=== PATIENT | female | born 1940 | race African-American/Black ===

== ENCOUNTER 2018-07-02 12:11 | Inpatient (IN) | payer MEDICARE, MEDICAID ==
[~2018-07-02] VITALS: Ht 167.6 cm; Wt 71.2 kg
[~2018-07-02 12:11] MED LIST: ATOR20TA65 PO; COR6 PO; ENAL20TA PO; FURO-151 PO; MAGN400T27 PO; eliquis PO
[2018-07-02] MEDS ORDERED: SODIUM CHLORIDE 0.9% 1,000 ML IV ONE (12:36)
[2018-07-02 15:48] LABS: BASOPHILS % 0.4 % (0.0-2.0); EOSINOPHILS % 0.6 % (0.0-5.0); HEMATOCRIT. 34.9 % (36.0-48.0); HEMOGLOBIN. 11.3 g/dL (12.0-16.0); LYMPHOCYTES % 18.7 % (20.0-50.0); MEAN CORPUSCULAR HEMOGLOBIN 28.6 pg (28.0-32.0); MEAN CORPUSCULAR VOLUME 88.1 fL (81.0-99.0); MEAN PLATELET VOLUME 7.9 fl (7.4-10.4); MONOCYTES % 13.6 % (2.0-8.0); NEUTROPHILS % 66.7 % (40.0-76.0); PLATELET 294 x1000/uL (130-400); RED BLOOD CELL COUNT 3.96 mill/uL (4.2-5.4); RED CELL DISTRIBUTION WIDTH 16.6 % (11.6-14.6)
[2018-07-02 15:50] LABS: CHLORIDE 101 mEq/L (98-107)
[2018-07-02 15:52] LABS: D-DIMER 1.79 mg/L FEU (<0.50); INR 1.1; PARTIAL THROMBOPLASTIN TIME 30.2 sec (23.4-31.0); PROTHROMBIN TIME 11.5 sec (9.1-11.1)
[2018-07-02 16:05] LABS: CREATINE KINASE 50 IU/L (26-192)
[2018-07-02] MEDS ORDERED: LORAZEPAM 2MG/ML CPJ IV ONE (16:15)
[2018-07-02] MEDS ORDERED: LORAZEPAM 2MG/ML CPJ ONE (16:20)
[2018-07-02] MEDS ORDERED: CLONIDINE 0.1MG TABLET PO PRN (17:15)
[2018-07-02] MEDS ORDERED: IPRATROPIUM/ALBUTEROL 0.5-3(2.5)MG/3ML NEB INH PRN (17:15)
[2018-07-02] MEDS ORDERED: DOCUSATE SODIUM 100MG CAPSULE PO PRN (17:15)
[2018-07-02] MEDS ORDERED: NA PHOS,M-B/NA PHOS,DI-BA ENEMA 118ML PR PRN (17:15)
[2018-07-02] MEDS ORDERED: TRAMADOL 50MG TABLET PO PRN (17:15)
[2018-07-02] MEDS ORDERED: NITROGLYCERIN 0.4MG TABLET SL SL PRN (17:15)
[2018-07-02] MEDS ORDERED: ACETAMINOPHEN 325MG TABLET PO PRN (17:15)
[2018-07-02] MEDS ORDERED: ONDANSETRON HCL 4MG/2ML VIAL IV PRN (17:15)
[2018-07-02] MEDS ORDERED: GUAIFENESIN 200MG/10ML SUGAR FREE UDC PO PRN (17:15)
[2018-07-02] MEDS ORDERED: MAGNESIUM/ALUMINUM HYDROXIDE/SIMETHICONE 30ML UDC PO PRN (17:15)
[2018-07-02] MEDS ORDERED: ZOLPIDEM TARTRATE 5MG TABLET PO PRN (21:00)
[2018-07-02 22:10] LABS: CREATINE KINASE MB FRACTION 2.4 ng/mL (0.5-3.6)
[2018-07-02 22:30] VITALS: BP 127/84
[2018-07-02] MEDS ORDERED: ONDANSETRON 4MG ODT PO PRN (23:30)
[2018-07-03] VITALS: BP 127/84
[2018-07-03] MEDS ORDERED: LEVOFLOXACIN 500MG PREMIX 100 ML IV SCH ×2
[2018-07-03] MEDS: APIXABAN 2.5 MG TABLET PO SCH ×3 (00:06→20:38)
[2018-07-03] MEDS: SODIUM CHLORIDE 0.9% 1,000 ML IV SCH (00:06)
[2018-07-03] MEDS ORDERED: ATOR10TA69 PO (00:32)
[2018-07-03] MEDS ORDERED: CARV12.545 PO (00:34)
[2018-07-03] MEDS ORDERED: SPIR25TA6 PO (00:37)
[2018-07-03] MEDS ORDERED: HYDR-4135 PO (00:37)
[2018-07-03] MEDS ORDERED: FAMO20TA8 PO (00:38)
[2018-07-03] MEDS ORDERED: AMLO2.5T2 PO (00:39)
[2018-07-03] MEDS ORDERED: CEFTRIAXONE 1 G PREMIX 50 ML IV NR (01:00)
[2018-07-03 04:00] VITALS: BP 115/73
[2018-07-03] MEDS: HALOPERIDOL LACTATE 5MG/ML VIAL IM PRN ×2 (04:09→22:45)
[2018-07-03] MEDS: CARVEDILOL 3.125 MG TABLET PO SCH ×2 (06:33→20:05)
[2018-07-03 08:03] LABS: CLARITY URINE CLEAR (CLEAR); COLOR URINE DARK YELLOW (YELLOW); KETONES URINE TRACE (NEGATIVE); LEUKOCYTE ESTERASE URINE NEGATIVE (NEGATIVE); NITRITE URINE NEGATIVE (NEGATIVE); OCCULT BLOOD URINE NEGATIVE (NEGATIVE); PROTEIN URINE NEGATIVE (NEGATIVE); SPECIFIC GRAVITY URINE 1.015 (1.005-1.030)
[2018-07-03 08:16] VITALS: BP 116/74
[2018-07-03] MEDS: ZINC SULFATE 220 MG ( 50 ) CAPSULE PO SCH (08:29)
[2018-07-03] MEDS: FAMOTIDINE 20MG TABLET PO SCH (08:29)
[2018-07-03] MEDS: ASCORBIC ACID 500 MG TABLET PO SCH ×2 (08:29→20:38)
[2018-07-03] MEDS: ASPIRIN 325MG EC TABLET PO SCH (08:29)
[2018-07-03] MEDS ORDERED: FAMOTIDINE 20MG TABLET PO SCH (09:00)
[2018-07-03 12:15] VITALS: BP 122/72
[2018-07-03 16:30] VITALS: BP 138/84
[2018-07-03] MEDS: DIPHENHYDRAMINE 50MG/ML VIAL IV PRN (21:32)
[2018-07-03] MEDS: CEFTRIAXONE 1 G PREMIX 50 ML IV SCH (21:32)
[2018-07-04] VITALS (7 sets, daily range): BP systolic 103–148; BP diastolic 60–91
[2018-07-04] MEDS: LEVOFLOXACIN 250MG PREMIX 50 ML IV SCH (01:11)
[2018-07-04] MEDS: DIPHENHYDRAMINE 50MG/ML VIAL IV PRN ×2 (01:59→08:35)
[2018-07-04] MEDS: SODIUM CHLORIDE 0.9% 1,000 ML IV SCH ×2 (02:26→17:43)
[2018-07-04] MEDS ORDERED: MAGNESIUM 4 G PREMIX 100 ML IV ONE (02:45)
[2018-07-04] MEDS ORDERED: MAGNESIUM 2 G PREMIX 50 ML IV ONE (02:45)
[2018-07-04] MEDS: CARVEDILOL 3.125 MG TABLET PO SCH ×2 (05:29→17:40)
[2018-07-04 07:15] LABS: HEMATOCRIT. 34.6 % (36.0-48.0); HEMOGLOBIN. 11.3 g/dL (12.0-16.0); MEAN CORPUSCULAR HEMOGLOBIN 28.7 pg (28.0-32.0); MEAN CORPUSCULAR VOLUME 88.1 fL (81.0-99.0); PLATELET 303 x1000/uL (130-400); RED BLOOD CELL COUNT 3.93 mill/uL (4.2-5.4); RED CELL DISTRIBUTION WIDTH 17.1 % (11.6-14.6)
[2018-07-04 07:47] LABS: CHLORIDE 103 mEq/L (98-107)
[2018-07-04] MEDS: FAMOTIDINE 20MG TABLET PO SCH (08:32)
[2018-07-04] MEDS: ASPIRIN 325MG EC TABLET PO SCH (08:32)
[2018-07-04] MEDS: ZINC SULFATE 220 MG ( 50 ) CAPSULE PO SCH (08:32)
[2018-07-04] MEDS: ASCORBIC ACID 500 MG TABLET PO SCH ×2 (08:32→20:31)
[2018-07-04] MEDS: APIXABAN 2.5 MG TABLET PO SCH ×2 (08:32→20:31)
[2018-07-04] MEDS ORDERED: HALOPERIDOL LACTATE 5MG/ML VIAL IM NR (08:45)
[2018-07-04 12:20] LABS: PLATELET ESTIMATE NORMAL
[2018-07-04] MEDS ORDERED: POTASSIUM CHLORIDE 20MEQ/PACKET PO NR (19:45)
[2018-07-04] MEDS: CEFTRIAXONE 1 G PREMIX 50 ML IV SCH (20:31)
[2018-07-05] VITALS: BP 101/83
[2018-07-05 00:07] VITALS: BP 101/83
[2018-07-05] MEDS: LEVOFLOXACIN 250MG PREMIX 50 ML IV SCH (00:23)
[2018-07-05] MEDS: SODIUM CHLORIDE 0.9% 1,000 ML IV SCH ×2 (04:44→09:31)
[2018-07-05 04:53] VITALS: BP 120/84
[2018-07-05] MEDS: CARVEDILOL 3.125 MG TABLET PO SCH (07:16)
[2018-07-05 08:00] VITALS: BP 122/77
[2018-07-05] MEDS: ASCORBIC ACID 500 MG TABLET PO SCH (09:28)
[2018-07-05] MEDS: ZINC SULFATE 220 MG ( 50 ) CAPSULE PO SCH (09:28)
[2018-07-05] MEDS: ASPIRIN 325MG EC TABLET PO SCH (09:28)
[2018-07-05] MEDS: APIXABAN 2.5 MG TABLET PO SCH (09:28)
[2018-07-05] MEDS: FAMOTIDINE 20MG TABLET PO SCH (09:30)
== END 2018-07-05 15:20 | disposition home health service (06) | DRG 52 ==
LOC: ER 12:11 → 6WST 16:41 → EDBEDREQ 16:43 → EDBEDREQTM 16:43 → SUPCPDRO 17:13 → ENRESERV 19:12
PROVIDERS: ADMIT Internal Medicine; ATTEND Internal Medicine
DX: G92 Toxic encephalopathy (principal); N17.0 Acute kidney failure with tubular necrosis; L89.150 Pressure ulcer of sacral region, unstageable; E44.0 Moderate protein-calorie malnutrition; I11.0 Hypertensive heart disease with heart failure; I50.9 Heart failure, unspecified; R62.7 Adult failure to thrive; E78.00 Pure hypercholesterolemia, unspecified; Z79.899 Other long term (current) drug therapy; Z95.0 Presence of cardiac pacemaker; Z90.10 Acquired absence of unspecified breast and nipple; Z68.25 Body mass index [BMI] 25.0-25.9, adult
CPT/HCPCS: 36415; 70450; 71045; 78582; 80053; 80061; 81003; 82550; 82553; 83036; 83605; 83690; 83735; 83880; 84134; 84484; 85025; 85379; 85610; 85730; 87040; 87086; 93005; 93306; 93970; 96374; 97162; 97530; 99285; A6261; A9558; C1893; J0696; J1200; J1630; J1956; J2060; J7030

== ENCOUNTER 2018-08-29 11:00 | Inpatient (IN) | payer MEDICARE, MEDICAID ==
[2018-08-29] VITALS (26 sets, daily range): BP systolic 74–127; BP diastolic 50–94
[~2018-08-29] VITALS: Ht 167.6 cm; Wt 82.6 kg
[~2018-08-29 11:00] MED LIST changes: +AMLO2.5T2 PO; +ATOR10TA69 PO; -ATOR20TA65 PO; +CARV12.545 PO; -COR6 PO; +FAMO20TA8 PO; +HYDR-4135 PO; -MAGN400T27 PO; +SPIR25TA6 PO
[2018-08-29] MEDS ORDERED: PIPERACILLIN/TAZ 3.375G PREMIX 50 ML IV ONE (11:30)
[2018-08-29] MEDS ORDERED: SODIUM CHLORIDE 0.9% 1000ML BAG (SEPSIS BOLUS) IV ONE (11:30)
[2018-08-29] MEDS ORDERED: VANCOMYCIN 1 G PREMIX 200 ML IV ONE (11:30)
[2018-08-29 12:06] LABS: HEMATOCRIT. 32.1 % (36.0-48.0); HEMOGLOBIN. 10.3 g/dL (12.0-16.0); MEAN CORPUSCULAR HEMOGLOBIN 29.1 pg (28.0-32.0); MEAN CORPUSCULAR VOLUME 90.4 fL (81.0-99.0); MEAN PLATELET VOLUME 7.7 fl (7.4-10.4); PLATELET 235 x1000/uL (130-400); RED BLOOD CELL COUNT 3.55 mill/uL (4.2-5.4); RED CELL DISTRIBUTION WIDTH 18.5 % (11.6-14.6)
[2018-08-29 12:10] LABS: CHLORIDE 106 mEq/L (98-107); CLARITY URINE CLOUDY (CLEAR); COLOR URINE DARK YELLOW (YELLOW); KETONES URINE TRACE (NEGATIVE); LEUKOCYTE ESTERASE URINE TRACE (NEGATIVE); NITRITE URINE NEGATIVE (NEGATIVE); OCCULT BLOOD URINE NEGATIVE (NEGATIVE); PROTEIN URINE TRACE (NEGATIVE); UROBILINOGEN URINE 0.2 E.U./dL (0.2-1.0)
[2018-08-29 12:11] LABS: INR 1.2; PROTHROMBIN TIME 12.5 sec (9.1-11.1)
[2018-08-29 12:19] LABS: CREATINE KINASE 130 IU/L (26-192)
[2018-08-29 12:27] LABS: PLATELET ESTIMATE NORMAL
[2018-08-29] MEDS ORDERED: LIDOCAINE HCL 1% 20ML VIAL (Pyxis) INJ ONE (13:21)
[2018-08-29] MEDS ORDERED: IPRATROPIUM/ALBUTEROL 0.5-3(2.5)MG/3ML NEB HHN PRN (14:15)
[2018-08-29] MEDS ORDERED: NITROGLYCERIN 0.4MG TABLET SL SL PRN (14:15)
[2018-08-29] MEDS ORDERED: TRAMADOL 50MG TABLET PO PRN (14:15)
[2018-08-29] MEDS ORDERED: IPRATROPIUM/ALBUTEROL 0.5-3(2.5)MG/3ML NEB INH PRN (14:15)
[2018-08-29] MEDS ORDERED: NOREPINEPHRINE 4 MG in DEXT 5% WATER 246 ML IV ONE ×3 (14:15→17:00)
[2018-08-29] MEDS ORDERED: DOCUSATE SODIUM 100MG CAPSULE PO PRN (14:15)
[2018-08-29] MEDS ORDERED: ONDANSETRON HCL 4MG/2ML INJ IV PRN (14:15)
[2018-08-29] MEDS ORDERED: MAGNESIUM/ALUMINUM HYDROXIDE/SIMETHICONE 30ML UDC PO PRN (14:15)
[2018-08-29] MEDS ORDERED: PIPERACILLIN/TAZ 3.375G PREMIX 50 ML IV SCH (14:15)
[2018-08-29] MEDS ORDERED: NA PHOS,M-B/NA PHOS,DI-BA ENEMA 118ML PR PRN (14:15)
[2018-08-29] MEDS ORDERED: GUAIFENESIN 200MG/10ML SUGAR FREE UDC PO PRN (14:15)
[2018-08-29] MEDS ORDERED: LORAZEPAM 2MG/ML CPJ IV STA (16:27)
[2018-08-29] MEDS ORDERED: LORAZEPAM 2MG/ML CPJ ONE (16:34)
[2018-08-29] MEDS ORDERED: SODIUM CHLORIDE 0.9% 1,000 ML IV ONE (16:45)
[2018-08-29] MEDS ORDERED: SODIUM CHLORIDE 0.9% 1,000 ML IV SCH (18:00)
[2018-08-29] MEDS ORDERED: DEXTROSE 50% WATER 50ML SYRINGE IV ONE (18:04)
[2018-08-29] MEDS ORDERED: FLUMAZENIL 0.1 MG/ML 5ML VIAL IV NR (18:15)
[2018-08-29] MEDS ORDERED: DEXTROSE 50% WATER 50ML SYRINGE IV NR (18:15)
[2018-08-29] MEDS ORDERED: VASOPRESSIN 10 UNIT in SODIUM CHLORIDE 0.9% 99.5 ML IV PRN (18:30)
[2018-08-29] MEDS ORDERED: DEXTROSE 50% WATER 50ML SYRINGE IV PRN (18:30)
[2018-08-29] MEDS: BLOOD SUGAR DIAGNOSTIC STRIP TEST SCH (18:34)
[2018-08-29] MEDS: ALBUMIN HUMAN 25GM/100ML (25%) IV SCH ×2 (18:37→18:40)
[2018-08-29] MEDS: DEXT 5%/0.9% NACL 1,000 ML IV SCH (18:40)
[2018-08-29 19:47] LABS: BG BASE EXCESS -8.7 mmol/L (-2.0-2.0); BG CARBOXYHEMOGLOBIN 0.3 % (0.5-1.5); BG DEOXYHEMOGLOBIN 0.7 % (0.0-5.0); BG FRACTION INSPIRED OXYGEN 36; BG HCO3 ACT 16.7 mmol/L (22.0-26.0); BG METHEMOGLOBIN 0.4 % (0.0-1.5); BG OXYGEN SATURATION 99.3 % (92.0-98.5); BG OXYHEMOGLOBIN 98.6 % (94.0-97.0); BG PH 7.309 (7.350-7.450); BG PO2 245.1 mmHg (75.0-100.0); BG SAMPLE SITE LEFT BRACHIAL; BG TOTAL HEMOGLOBIN 10.7 g/dL (12.0-18.0); BG VENT MODE NASAL CANNULA
[2018-08-29] MEDS ORDERED: VANCOMYCIN 1500MG in DEXTROSE 5% WATER 250ML IV NR (20:00)
[2018-08-29] MEDS: FAMOTIDINE 20MG TABLET PO SCH (20:59)
[2018-08-29] MEDS ORDERED: ZOLPIDEM TARTRATE 5MG TABLET PO PRN (21:00)
[2018-08-29] MEDS: ASCORBIC ACID 500 MG TABLET PO SCH (21:00)
[2018-08-29] MEDS: PIPERACILLIN/TAZ 2.25G PREMIX 50 ML IV SCH (21:04)
[2018-08-29] MEDS: ENOXAPARIN 30MG/0.3ML SYR SUBCUT SCH (21:04)
[2018-08-29 23:14] LABS: CREATINE KINASE MB FRACTION 8.9 ng/mL (0.5-3.6)
[2018-08-30] VITALS (125 sets, daily range): BP systolic 33–165; BP diastolic 17–121
[2018-08-30] MEDS: BLOOD SUGAR DIAGNOSTIC STRIP TEST SCH ×4 (00:26→18:16)
[2018-08-30] MEDS: IPRATROPIUM/ALBUTEROL 0.5-3(2.5)MG/3ML NEB HHN SCH ×4 (00:27→20:05)
[2018-08-30] MEDS: NOREPINEPHRINE 16 MG in DEXT 5% WATER 234 ML IV PRN ×3 (01:10→21:23)
[2018-08-30 05:46] LABS: HEMATOCRIT. 31.9 % (36.0-48.0); HEMOGLOBIN. 10.3 g/dL (12.0-16.0); MEAN CORPUSCULAR VOLUME 90.1 fL (81.0-99.0); MEAN PLATELET VOLUME 7.6 fl (7.4-10.4); PLATELET 245 x1000/uL (130-400); RED BLOOD CELL COUNT 3.54 mill/uL (4.2-5.4); RED CELL DISTRIBUTION WIDTH 18.1 % (11.6-14.6)
[2018-08-30 05:50] LABS: CHLORIDE 110 mEq/L (98-107)
[2018-08-30 05:58] LABS: CREATINE KINASE 127 IU/L (26-192)
[2018-08-30 06:01] LABS: CREATINE KINASE MB FRACTION 9.4 ng/mL (0.5-3.6)
[2018-08-30] MEDS: PIPERACILLIN/TAZ 2.25G PREMIX 50 ML IV SCH ×2 (06:15→18:17)
[2018-08-30] MEDS: ASCORBIC ACID 500 MG TABLET PO SCH ×2 (09:00→21:24)
[2018-08-30] MEDS: ZINC SULFATE 220 MG ( 50 ) CAPSULE PO SCH (09:00)
[2018-08-30] MEDS: ASPIRIN 325MG EC TABLET PO SCH (09:00)
[2018-08-30 09:11] LABS: PLATELET ESTIMATE NORMAL
[2018-08-30 09:19] LABS: BG BASE EXCESS -8.1 mmol/L (-2.0-2.0); BG CARBOXYHEMOGLOBIN 0.3 % (0.5-1.5); BG DEOXYHEMOGLOBIN 3.8 % (0.0-5.0); BG FRACTION INSPIRED OXYGEN 21; BG HCO3 ACT 17.4 mmol/L (22.0-26.0); BG METHEMOGLOBIN 0.5 % (0.0-1.5); BG OXYGEN SATURATION 96.2 % (92.0-98.5); BG OXYHEMOGLOBIN 95.4 % (94.0-97.0); BG PCO2 35.6 mmHg (35.0-45.0); BG PH 7.308 (7.350-7.450); BG PO2 93.6 mmHg (75.0-100.0); BG SAMPLE SITE RIGHT BRACHIAL; BG TOTAL HEMOGLOBIN 10.8 g/dL (12.0-18.0); BG VENT MODE ROOM AIR
[2018-08-30] MEDS ORDERED: SODIUM CHLORIDE 0.9% 500 ML IV ONE ×2 (09:30→12:00)
[2018-08-30] MEDS ORDERED: ALBUMIN HUMAN 25GM/100ML (25%) IV NR (09:30)
[2018-08-30] MEDS: DEXT 5%/0.9% NACL 1,000 ML IV SCH ×2 (10:16→21:32)
[2018-08-30] MEDS: ALBUMIN HUMAN 25GM/100ML (25%) IV SCH (12:00)
[2018-08-30] MEDS: ENOXAPARIN 30MG/0.3ML SYR SUBCUT SCH (21:23)
[2018-08-30] MEDS: FAMOTIDINE 20MG TABLET PO SCH (21:24)
[2018-08-31] VITALS (111 sets, daily range): BP systolic 52–139; BP diastolic 28–105
[2018-08-31] MEDS: BLOOD SUGAR DIAGNOSTIC STRIP TEST SCH ×4 (00:39→18:21)
[2018-08-31] MEDS: IPRATROPIUM/ALBUTEROL 0.5-3(2.5)MG/3ML NEB HHN SCH ×4 (01:53→20:32)
[2018-08-31] MEDS: PIPERACILLIN/TAZ 2.25G PREMIX 50 ML IV SCH ×2 (05:52→18:21)
[2018-08-31] MEDS: NOREPINEPHRINE 16 MG in DEXT 5% WATER 234 ML IV PRN ×2 (06:09→22:18)
[2018-08-31] MEDS: ASPIRIN 325MG EC TABLET PO SCH (09:36)
[2018-08-31] MEDS: ASCORBIC ACID 500 MG TABLET PO SCH ×2 (09:36→20:15)
[2018-08-31] MEDS: ZINC SULFATE 220 MG ( 50 ) CAPSULE PO SCH (09:36)
[2018-08-31] MEDS: DEXT 5%/0.9% NACL 1,000 ML IV SCH (09:49)
[2018-08-31] MEDS: PHENYLEPHRINE 40 MG in DEXT 5% WATER 246 ML IV PRN ×2 (10:36→16:34)
[2018-08-31 12:27] LABS: BG BASE EXCESS -10.5 mmol/L (-2.0-2.0); BG CARBOXYHEMOGLOBIN 0.2 % (0.5-1.5); BG DEOXYHEMOGLOBIN 5.4 % (0.0-5.0); BG FRACTION INSPIRED OXYGEN 21; BG HCO3 ACT 14.5 mmol/L (22.0-26.0); BG METHEMOGLOBIN 0.3 % (0.0-1.5); BG OXYGEN SATURATION 94.6 % (92.0-98.5); BG OXYHEMOGLOBIN 94.1 % (94.0-97.0); BG PCO2 29.5 mmHg (35.0-45.0); BG PO2 78.8 mmHg (75.0-100.0); BG SAMPLE SITE RIGHT BRACHIAL; BG VENT MODE ROOM AIR
[2018-08-31] MEDS: SODIUM BICARBONATE 50 MEQ in DEXT 5%/0.45% NACL 1000ML 1,000 ML IV SCH (13:49)
[2018-08-31] MEDS ORDERED: MAGNESIUM SULFATE 2 GM in DEXTROSE 5% WATER 50 ML IV SCH (14:00)
[2018-08-31] MEDS: NYSTATIN POWDER 15GM TOP SCH (20:15)
[2018-08-31] MEDS: ENOXAPARIN 30MG/0.3ML SYR SUBCUT SCH (20:15)
[2018-08-31] MEDS: FAMOTIDINE 20MG TABLET PO SCH (20:15)
[2018-08-31] MEDS: HYDROCORTISONE SOD SUCCINATE 100 MG/2 ML VIAL IV SCH (22:16)
[2018-09-01] VITALS (94 sets, daily range): BP systolic 78–146; BP diastolic 31–98
[2018-09-01] MEDS: BLOOD SUGAR DIAGNOSTIC STRIP TEST SCH ×3 (00:07→18:19)
[2018-09-01] MEDS: METOCLOPRAMIDE HCL 10MG/2ML VIAL IV SCH ×4 (00:07→18:19)
[2018-09-01] MEDS: IPRATROPIUM/ALBUTEROL 0.5-3(2.5)MG/3ML NEB HHN SCH ×4 (01:02→21:04)
[2018-09-01] MEDS: SODIUM BICARBONATE 50 MEQ in DEXT 5%/0.45% NACL 1000ML 1,000 ML IV SCH (02:08)
[2018-09-01] MEDS: HYDROCORTISONE SOD SUCCINATE 100 MG/2 ML VIAL IV SCH ×3 (05:48→21:36)
[2018-09-01] MEDS: PIPERACILLIN/TAZ 2.25G PREMIX 50 ML IV SCH ×2 (05:51→18:19)
[2018-09-01 05:54] LABS: BASOPHILS % 0.6 % (0.0-2.0); EOSINOPHILS % 0.3 % (0.0-5.0); HEMATOCRIT. 36.1 % (36.0-48.0); HEMOGLOBIN. 11.6 g/dL (12.0-16.0); LYMPHOCYTES % 20.8 % (20.0-50.0); MEAN CORPUSCULAR HEMOGLOBIN 29.3 pg (28.0-32.0); MEAN CORPUSCULAR VOLUME 91.3 fL (81.0-99.0); MEAN PLATELET VOLUME 8.1 fl (7.4-10.4); MONOCYTES % 6.3 % (2.0-8.0); PLATELET 119 x1000/uL (130-400); RED BLOOD CELL COUNT 3.95 mill/uL (4.2-5.4); RED CELL DISTRIBUTION WIDTH 18.7 % (11.6-14.6)
[2018-09-01 06:11] LABS: PHOSPHORUS 5.8 mg/dL (2.5-4.9)
[2018-09-01] MEDS: NOREPINEPHRINE 16 MG in DEXT 5% WATER 234 ML IV PRN ×2 (06:54→15:15)
[2018-09-01] MEDS ORDERED: SODIUM POLYSTYRENE SULFONATE 15 G/60 ML BOT PO SCH (07:15)
[2018-09-01 07:31] LABS: BG BASE EXCESS -12.3 mmol/L (-2.0-2.0); BG CARBOXYHEMOGLOBIN 0.5 % (0.5-1.5); BG DEOXYHEMOGLOBIN 2.9 % (0.0-5.0); BG METHEMOGLOBIN 0.1 % (0.0-1.5); BG OXYGEN SATURATION 97.1 % (92.0-98.5); BG OXYHEMOGLOBIN 96.5 % (94.0-97.0); BG PH 7.359 (7.350-7.450); BG PO2 96.2 mmHg (75.0-100.0); BG SAMPLE SITE RIGHT BRACHIAL; BG TOTAL HEMOGLOBIN 11.9 g/dL (12.0-18.0); BG VENT MODE ROOM AIR
[2018-09-01] MEDS: SODIUM BICARBONATE 100 MEQ in DEXT 5%/0.2% NACL 1,000 ML IV SCH ×6 (08:00→15:00)
[2018-09-01] MEDS: ZINC SULFATE 220 MG ( 50 ) CAPSULE PO SCH (10:51)
[2018-09-01] MEDS: PANTOPRAZOLE SODIUM 40 MG/VIAL IV SCH (10:51)
[2018-09-01] MEDS: ASPIRIN 325MG EC TABLET PO SCH (10:51)
[2018-09-01] MEDS: ASCORBIC ACID 500 MG TABLET PO SCH ×2 (10:51→20:49)
[2018-09-01] MEDS: NYSTATIN POWDER 15GM TOP SCH ×3 (10:53→17:07)
[2018-09-01] MEDS: ENOXAPARIN 30MG/0.3ML SYR SUBCUT SCH (20:48)
[2018-09-01] MEDS ORDERED: VANCOMYCIN 750 MG PREMIX 150 ML IV SCH (21:00)
[2018-09-02] VITALS (96 sets, daily range): BP systolic 74–145; BP diastolic 22–108
[2018-09-02] MEDS: BLOOD SUGAR DIAGNOSTIC STRIP TEST SCH ×4 (00:49→17:54)
[2018-09-02] MEDS: METOCLOPRAMIDE HCL 10MG/2ML VIAL IV SCH ×5 (00:55→23:53)
[2018-09-02] MEDS: SODIUM BICARBONATE 100 MEQ in DEXT 5%/0.2% NACL 1,000 ML IV SCH ×6 (01:42→11:49)
[2018-09-02] MEDS: NOREPINEPHRINE 16 MG in DEXT 5% WATER 234 ML IV PRN ×2 (01:42→11:50)
[2018-09-02] MEDS: IPRATROPIUM/ALBUTEROL 0.5-3(2.5)MG/3ML NEB HHN SCH ×4 (02:00→20:39)
[2018-09-02] MEDS: PIPERACILLIN/TAZ 2.25G PREMIX 50 ML IV SCH ×2 (06:11→18:08)
[2018-09-02] MEDS: HYDROCORTISONE SOD SUCCINATE 100 MG/2 ML VIAL IV SCH ×3 (06:19→22:13)
[2018-09-02 06:37] LABS: HEMATOCRIT. 32.3 % (36.0-48.0); HEMOGLOBIN. 10.5 g/dL (12.0-16.0); MEAN CORPUSCULAR HEMOGLOBIN 28.9 pg (28.0-32.0); MEAN CORPUSCULAR VOLUME 88.6 fL (81.0-99.0); MEAN PLATELET VOLUME 8.2 fl (7.4-10.4); PLATELET 168 x1000/uL (130-400); RED BLOOD CELL COUNT 3.64 mill/uL (4.2-5.4); RED CELL DISTRIBUTION WIDTH 18.6 % (11.6-14.6)
[2018-09-02 06:41] LABS: CHLORIDE 103 mEq/L (98-107)
[2018-09-02 06:49] LABS: PHOSPHORUS 5.8 mg/dL (2.5-4.9)
[2018-09-02] MEDS: PANTOPRAZOLE SODIUM 40 MG/VIAL IV SCH (08:44)
[2018-09-02] MEDS: ASPIRIN 325MG EC TABLET PO SCH (08:45)
[2018-09-02] MEDS: ASCORBIC ACID 500 MG TABLET PO SCH ×2 (08:45→22:17)
[2018-09-02] MEDS: ZINC SULFATE 220 MG ( 50 ) CAPSULE PO SCH (08:45)
[2018-09-02] MEDS: NYSTATIN POWDER 15GM TOP SCH ×3 (08:45→17:00)
[2018-09-02 09:21] LABS: NUCLEATED RED BLOOD CELLS 2 /100 WBC; PLATELET ESTIMATE NORMAL
[2018-09-02] MEDS ORDERED: MORPHINE SULFATE 4 MG/ML CPJ (NOT FOR IM USE) IV NR (14:45)
[2018-09-02] MEDS ORDERED: FLUCONAZOLE 200 MG/100ML BAG 100 ML IV SCH (16:00)
[2018-09-02] MEDS ORDERED: LORAZEPAM 2MG/ML CPJ IV PRN (21:15)
[2018-09-02] MEDS: ENOXAPARIN 30MG/0.3ML SYR SUBCUT SCH (22:17)
[2018-09-03] VITALS (53 sets, daily range): BP systolic 84–139; BP diastolic 56–99
[2018-09-03] MEDS: BLOOD SUGAR DIAGNOSTIC STRIP TEST SCH ×4 (00:54→18:26)
[2018-09-03] MEDS: IPRATROPIUM/ALBUTEROL 0.5-3(2.5)MG/3ML NEB HHN SCH ×4 (01:29→22:17)
[2018-09-03] MEDS: PIPERACILLIN/TAZ 2.25G PREMIX 50 ML IV SCH ×2 (06:40→18:26)
[2018-09-03] MEDS: METOCLOPRAMIDE HCL 10MG/2ML VIAL IV SCH ×3 (06:40→18:26)
[2018-09-03 07:06] LABS: HEMATOCRIT. 26.9 % (36.0-48.0); HEMOGLOBIN. 9.1 g/dL (12.0-16.0); MEAN CORPUSCULAR HEMOGLOBIN 29.6 pg (28.0-32.0); MEAN CORPUSCULAR VOLUME 87.9 fL (81.0-99.0); MEAN PLATELET VOLUME 8.2 fl (7.4-10.4); PLATELET 112 x1000/uL (130-400); RED BLOOD CELL COUNT 3.06 mill/uL (4.2-5.4); RED CELL DISTRIBUTION WIDTH 18.3 % (11.6-14.6)
[2018-09-03 07:56] LABS: CHLORIDE 101 mEq/L (98-107)
[2018-09-03] MEDS: HYDROCORTISONE SOD SUCCINATE 100 MG/2 ML VIAL IV SCH ×3 (08:08→21:19)
[2018-09-03 08:18] LABS: PHOSPHORUS 5.9 mg/dL (2.5-4.9)
[2018-09-03] MEDS ORDERED: FUROSEMIDE 100MG/10ML VIAL IVP NR (09:15)
[2018-09-03] MEDS ORDERED: ALBUMIN HUMAN 25GM/100ML (25%) IV NR (09:30)
[2018-09-03] MEDS: SODIUM BICARBONATE 100 MEQ in DEXT 5%/0.2% NACL 1,000 ML IV SCH ×3 (09:37)
[2018-09-03] MEDS: ASCORBIC ACID 500 MG TABLET PO SCH (09:38)
[2018-09-03] MEDS: ASPIRIN 325MG EC TABLET PO SCH (09:38)
[2018-09-03] MEDS: ZINC SULFATE 220 MG ( 50 ) CAPSULE PO SCH (09:38)
[2018-09-03] MEDS: NYSTATIN POWDER 15GM TOP SCH ×3 (09:39→18:26)
[2018-09-03] MEDS: PANTOPRAZOLE SODIUM 40 MG/VIAL IV SCH (09:40)
[2018-09-03] MEDS ORDERED: BISACODYL 10MG SUPP PR PRN (10:45)
[2018-09-03 13:09] LABS: ATYPICAL LYMPHOCYTES 1; NUCLEATED RED BLOOD CELLS 1 /100 WBC
[2018-09-03 13:10] LABS: PLATELET ESTIMATE DECREASED
[2018-09-03] MEDS: DOCUSATE SODIUM SUGAR FREE 100MG/10ML UDC NG SCH (13:16)
[2018-09-03] MEDS: MORPHINE SULFATE 4 MG/ML CPJ (NOT FOR IM USE) IV PRN (13:17)
[2018-09-03] MEDS: ENOXAPARIN 30MG/0.3ML SYR SUBCUT SCH (19:54)
[2018-09-03] MEDS ORDERED: ASCORBIC ACID 500MG/5ML 120ML NG SCH (21:00)
[2018-09-03] MEDS: ASCORBIC ACID 500 MG TABLET NG SCH (21:18)
[2018-09-04] VITALS (59 sets, daily range): BP systolic 103–163; BP diastolic 53–118
[2018-09-04] MEDS: BLOOD SUGAR DIAGNOSTIC STRIP TEST SCH ×4 (00:18→17:16)
[2018-09-04] MEDS: METOCLOPRAMIDE HCL 10MG/2ML VIAL IV SCH ×4 (00:24→17:38)
[2018-09-04] MEDS: IPRATROPIUM/ALBUTEROL 0.5-3(2.5)MG/3ML NEB HHN SCH ×3 (02:16→20:58)
[2018-09-04] MEDS: PIPERACILLIN/TAZ 2.25G PREMIX 50 ML IV SCH ×2 (06:51→18:00)
[2018-09-04] MEDS: HYDROCORTISONE SOD SUCCINATE 100 MG/2 ML VIAL IV SCH ×3 (06:51→21:03)
[2018-09-04 06:52] LABS: HEMATOCRIT. 29.3 % (36.0-48.0); HEMOGLOBIN. 9.5 g/dL (12.0-16.0); MEAN CORPUSCULAR HEMOGLOBIN 28.9 pg (28.0-32.0); MEAN CORPUSCULAR VOLUME 88.7 fL (81.0-99.0); MEAN PLATELET VOLUME 8.2 fl (7.4-10.4); PLATELET 110 x1000/uL (130-400); RED CELL DISTRIBUTION WIDTH 18.6 % (11.6-14.6)
[2018-09-04 06:59] LABS: PHOSPHORUS 5.1 mg/dL (2.5-4.9)
[2018-09-04] MEDS: SODIUM BICARBONATE 100 MEQ in DEXT 5%/0.2% NACL 1,000 ML IV SCH ×3 (07:03)
[2018-09-04] MEDS: DOCUSATE SODIUM SUGAR FREE 100MG/10ML UDC NG SCH ×2 (09:00→09:23)
[2018-09-04] MEDS: ASPIRIN 325MG EC TABLET PO SCH (09:21)
[2018-09-04] MEDS: PANTOPRAZOLE SODIUM 40 MG/VIAL IV SCH (09:21)
[2018-09-04] MEDS: ZINC SULFATE 220 MG ( 50 ) CAPSULE PO SCH (09:22)
[2018-09-04] MEDS: ASCORBIC ACID 500 MG TABLET NG SCH ×2 (09:22→21:03)
[2018-09-04] MEDS: NYSTATIN POWDER 15GM TOP SCH ×3 (09:22→17:38)
[2018-09-04] MEDS ORDERED: LIDOCAINE HCL 1% 20ML VIAL (Pyxis) INJ ONE (09:32)
[2018-09-04 10:17] LABS: PLATELET ESTIMATE DECREASED
[2018-09-04] MEDS: ENOXAPARIN 30MG/0.3ML SYR SUBCUT SCH (20:00)
[2018-09-05] VITALS (34 sets, daily range): BP systolic 105–174; BP diastolic 67–114
[2018-09-05] MEDS: METOCLOPRAMIDE HCL 10MG/2ML VIAL IV SCH ×4 (00:16→17:45)
[2018-09-05] MEDS: BLOOD SUGAR DIAGNOSTIC STRIP TEST SCH ×4 (00:18→17:46)
[2018-09-05] MEDS: IPRATROPIUM/ALBUTEROL 0.5-3(2.5)MG/3ML NEB HHN SCH ×4 (00:35→21:13)
[2018-09-05] MEDS: PIPERACILLIN/TAZ 2.25G PREMIX 50 ML IV SCH ×2 (05:27→17:45)
[2018-09-05] MEDS: HYDROCORTISONE SOD SUCCINATE 100 MG/2 ML VIAL IV SCH ×3 (05:27→22:24)
[2018-09-05 06:20] LABS: HEMATOCRIT. 29.3 % (36.0-48.0); HEMOGLOBIN. 9.7 g/dL (12.0-16.0); MEAN CORPUSCULAR HEMOGLOBIN 28.9 pg (28.0-32.0); MEAN CORPUSCULAR VOLUME 87.1 fL (81.0-99.0); MEAN PLATELET VOLUME 8.2 fl (7.4-10.4); PLATELET 101 x1000/uL (130-400); RED BLOOD CELL COUNT 3.36 mill/uL (4.2-5.4); RED CELL DISTRIBUTION WIDTH 18.5 % (11.6-14.6)
[2018-09-05 06:40] LABS: PHOSPHORUS 3.7 mg/dL (2.5-4.9)
[2018-09-05 08:03] LABS: NUCLEATED RED BLOOD CELLS 3 /100 WBC; PLATELET ESTIMATE DECREASED
[2018-09-05] MEDS: DOCUSATE SODIUM SUGAR FREE 100MG/10ML UDC NG SCH (08:12)
[2018-09-05] MEDS: NYSTATIN POWDER 15GM TOP SCH ×3 (08:12→21:10)
[2018-09-05] MEDS: PANTOPRAZOLE SODIUM 40 MG/VIAL IV SCH (08:28)
[2018-09-05] MEDS: ASCORBIC ACID 500 MG TABLET NG SCH ×2 (08:28→21:10)
[2018-09-05] MEDS: ZINC SULFATE 220 MG ( 50 ) CAPSULE PO SCH (08:28)
[2018-09-05] MEDS: ASPIRIN 325MG EC TABLET PO SCH (08:28)
[2018-09-05] MEDS: MORPHINE SULFATE 4 MG/ML CPJ (NOT FOR IM USE) IV PRN (15:46)
[2018-09-05] MEDS: ENOXAPARIN 30MG/0.3ML SYR SUBCUT SCH (21:10)
[2018-09-05] MEDS: CLONIDINE 0.1MG TABLET PO PRN (21:26)
[2018-09-06] VITALS (12 sets, daily range): BP systolic 129–173; BP diastolic 74–121
[2018-09-06] MEDS: BLOOD SUGAR DIAGNOSTIC STRIP TEST SCH ×4 (00:30→17:57)
[2018-09-06] MEDS: METOCLOPRAMIDE HCL 10MG/2ML VIAL IV SCH ×4 (02:06→18:07)
[2018-09-06] MEDS: IPRATROPIUM/ALBUTEROL 0.5-3(2.5)MG/3ML NEB HHN SCH ×2 (02:18→21:40)
[2018-09-06] MEDS: HYDROCORTISONE SOD SUCCINATE 100 MG/2 ML VIAL IV SCH ×3 (06:00→21:33)
[2018-09-06 07:05] LABS: HEMATOCRIT. 29.3 % (36.0-48.0); HEMOGLOBIN. 9.8 g/dL (12.0-16.0); MEAN CORPUSCULAR HEMOGLOBIN 29.4 pg (28.0-32.0); MEAN CORPUSCULAR VOLUME 87.6 fL (81.0-99.0); MEAN PLATELET VOLUME 8.9 fl (7.4-10.4); PLATELET 100 x1000/uL (130-400); RED BLOOD CELL COUNT 3.34 mill/uL (4.2-5.4); RED CELL DISTRIBUTION WIDTH 18.4 % (11.6-14.6)
[2018-09-06 08:00] LABS: PHOSPHORUS 4.1 mg/dL (2.5-4.9)
[2018-09-06] MEDS: PANTOPRAZOLE SODIUM 40 MG/VIAL IV SCH ×2 (08:35→13:38)
[2018-09-06] MEDS: ASCORBIC ACID 500 MG TABLET NG SCH ×3 (08:36→21:33)
[2018-09-06] MEDS: ZINC SULFATE 220 MG ( 50 ) CAPSULE PO SCH ×2 (08:36→13:37)
[2018-09-06] MEDS: ASPIRIN 325MG EC TABLET PO SCH ×2 (08:36→13:37)
[2018-09-06] MEDS: DOCUSATE SODIUM SUGAR FREE 100MG/10ML UDC NG SCH (08:36)
[2018-09-06] MEDS: NYSTATIN POWDER 15GM TOP SCH ×3 (08:41→18:07)
[2018-09-06 08:47] LABS: NUCLEATED RED BLOOD CELLS 2 /100 WBC
[2018-09-06 08:48] LABS: PLATELET ESTIMATE DECREASED
[2018-09-06] MEDS: ENOXAPARIN 30MG/0.3ML SYR SUBCUT SCH (21:33)
[2018-09-07] VITALS (15 sets, daily range): BP systolic 118–166; BP diastolic 68–119
[2018-09-07] MEDS: METOCLOPRAMIDE HCL 10MG/2ML VIAL IV SCH ×4 (00:37→17:20)
[2018-09-07] MEDS: CLONIDINE 0.1MG TABLET PO PRN (00:38)
[2018-09-07] MEDS: BLOOD SUGAR DIAGNOSTIC STRIP TEST SCH ×4 (00:38→18:30)
[2018-09-07] MEDS: IPRATROPIUM/ALBUTEROL 0.5-3(2.5)MG/3ML NEB HHN SCH ×4 (02:18→21:55)
[2018-09-07] MEDS: HYDROCORTISONE SOD SUCCINATE 100 MG/2 ML VIAL IV SCH ×3 (06:38→21:10)
[2018-09-07 06:53] LABS: HEMATOCRIT. 30.1 % (36.0-48.0); HEMOGLOBIN. 9.9 g/dL (12.0-16.0); MEAN CORPUSCULAR HEMOGLOBIN 28.9 pg (28.0-32.0); MEAN CORPUSCULAR VOLUME 87.8 fL (81.0-99.0); MEAN PLATELET VOLUME 8.9 fl (7.4-10.4); PLATELET 110 x1000/uL (130-400); RED BLOOD CELL COUNT 3.42 mill/uL (4.2-5.4)
[2018-09-07 07:18] LABS: PHOSPHORUS 3.9 mg/dL (2.5-4.9)
[2018-09-07] MEDS: ASCORBIC ACID 500 MG TABLET NG SCH ×2 (09:48→21:10)
[2018-09-07] MEDS: PANTOPRAZOLE SODIUM 40 MG/VIAL IV SCH (09:48)
[2018-09-07] MEDS: LACTOBACILLUS GG CAPSULE PO SCH (09:48)
[2018-09-07] MEDS: ASPIRIN 325MG EC TABLET PO SCH (09:49)
[2018-09-07] MEDS: ZINC SULFATE 220 MG ( 50 ) CAPSULE PO SCH (09:49)
[2018-09-07] MEDS: DOCUSATE SODIUM SUGAR FREE 100MG/10ML UDC NG SCH (09:50)
[2018-09-07] MEDS: NYSTATIN POWDER 15GM TOP SCH ×3 (09:51→17:21)
[2018-09-07 10:12] LABS: NUCLEATED RED BLOOD CELLS 3 /100 WBC
[2018-09-07 10:13] LABS: PLATELET ESTIMATE SLIGHTLY DECREASED
[2018-09-07 11:37] LABS: HEPATITIS B SURFACE ANTIGEN NEGATIVE
[2018-09-07 12:05] LABS: HEPATITIS B CORE AB IGM NEGATIVE
[2018-09-07 12:07] LABS: HEPATITIS A AB IGM NEGATIVE (NEGATIVE)
[2018-09-07] MEDS ORDERED: KCL 20MEQ/100ML PREMIX 100 ML IV NR (13:30)
[2018-09-07] MEDS ORDERED: MAGNESIUM 1 G PREMIX 100 ML IV NR (14:00)
[2018-09-07] MEDS: ENOXAPARIN 30MG/0.3ML SYR SUBCUT SCH (21:11)
[2018-09-08] VITALS (11 sets, daily range): BP systolic 94–143; BP diastolic 51–93
[2018-09-08] MEDS: METOCLOPRAMIDE HCL 10MG/2ML VIAL IV SCH ×4 (00:11→18:19)
[2018-09-08] MEDS: BLOOD SUGAR DIAGNOSTIC STRIP TEST SCH ×3 (00:30→18:30)
[2018-09-08] MEDS: IPRATROPIUM/ALBUTEROL 0.5-3(2.5)MG/3ML NEB HHN SCH ×4 (03:51→21:14)
[2018-09-08] MEDS: HYDROCORTISONE SOD SUCCINATE 100 MG/2 ML VIAL IV SCH ×3 (05:37→21:23)
[2018-09-08 06:00] LABS: INR 1.2; PARTIAL THROMBOPLASTIN TIME 27.1 sec (23.4-31.0); PROTHROMBIN TIME 11.7 sec (9.1-11.1)
[2018-09-08 06:18] LABS: HEMATOCRIT. 30.1 % (36.0-48.0); HEMOGLOBIN. 9.9 g/dL (12.0-16.0); MEAN CORPUSCULAR HEMOGLOBIN 28.9 pg (28.0-32.0); MEAN CORPUSCULAR VOLUME 87.5 fL (81.0-99.0); MEAN PLATELET VOLUME 8.9 fl (7.4-10.4); PLATELET 119 x1000/uL (130-400); RED BLOOD CELL COUNT 3.44 mill/uL (4.2-5.4); RED CELL DISTRIBUTION WIDTH 18.6 % (11.6-14.6)
[2018-09-08 07:22] LABS: CHLORIDE 97 mEq/L (98-107)
[2018-09-08] MEDS ORDERED: CEFAZOLIN 1000MG PREMIX 50 ML IV SCH (08:00)
[2018-09-08] MEDS: NYSTATIN POWDER 15GM TOP SCH ×3 (09:00→18:35)
[2018-09-08] MEDS: ASPIRIN 325MG EC TABLET PO SCH (09:00)
[2018-09-08] MEDS: ASCORBIC ACID 500 MG TABLET NG SCH ×2 (09:00→21:23)
[2018-09-08] MEDS: ZINC SULFATE 220 MG ( 50 ) CAPSULE PO SCH (09:00)
[2018-09-08] MEDS: DOCUSATE SODIUM SUGAR FREE 100MG/10ML UDC NG SCH (09:00)
[2018-09-08] MEDS: LACTOBACILLUS GG CAPSULE PO SCH (09:00)
[2018-09-08] MEDS: PANTOPRAZOLE SODIUM 40 MG/VIAL IV SCH (10:04)
[2018-09-08 10:40] LABS: PLATELET ESTIMATE DECREASED
[2018-09-08] MEDS ORDERED: MIDAZOLAM HCL 5 MG/5 ML VIAL ONE (11:52)
[2018-09-08] MEDS ORDERED: POTASSIUM CHLORIDE 20MEQ/PACKET PO NR (15:15)
[2018-09-08] MEDS: ENOXAPARIN 30MG/0.3ML SYR SUBCUT SCH (21:23)
[2018-09-09] VITALS (14 sets, daily range): BP systolic 121–176; BP diastolic 68–109
[2018-09-09] MEDS: BLOOD SUGAR DIAGNOSTIC STRIP TEST SCH ×4 (00:50→18:19)
[2018-09-09] MEDS: METOCLOPRAMIDE HCL 10MG/2ML VIAL IV SCH ×4 (00:50→18:29)
[2018-09-09] MEDS: IPRATROPIUM/ALBUTEROL 0.5-3(2.5)MG/3ML NEB HHN SCH ×4 (03:00→19:54)
[2018-09-09] MEDS: HYDROCORTISONE SOD SUCCINATE 100 MG/2 ML VIAL IV SCH (05:14)
[2018-09-09 07:36] LABS: PHOSPHORUS 4.9 mg/dL (2.5-4.9)
[2018-09-09 08:27] LABS: HEMATOCRIT. 36.4 % (36.0-48.0); MEAN CORPUSCULAR HEMOGLOBIN 29.3 pg (28.0-32.0); MEAN PLATELET VOLUME 9.2 fl (7.4-10.4); PLATELET 116 x1000/uL (130-400); RED BLOOD CELL COUNT 4.09 mill/uL (4.2-5.4); RED CELL DISTRIBUTION WIDTH 19.2 % (11.6-14.6)
[2018-09-09] MEDS: ASCORBIC ACID 500 MG TABLET NG SCH ×2 (09:35→21:04)
[2018-09-09] MEDS: LACTOBACILLUS GG CAPSULE PO SCH (09:35)
[2018-09-09] MEDS: ASPIRIN 325MG EC TABLET PO SCH (09:35)
[2018-09-09] MEDS: PANTOPRAZOLE SODIUM 40 MG/VIAL IV SCH (09:35)
[2018-09-09] MEDS: ZINC SULFATE 220 MG ( 50 ) CAPSULE PO SCH (09:35)
[2018-09-09] MEDS: NYSTATIN POWDER 15GM TOP SCH ×3 (09:36→18:30)
[2018-09-09] MEDS: DOCUSATE SODIUM SUGAR FREE 100MG/10ML UDC NG SCH (09:36)
[2018-09-09 13:17] LABS: NUCLEATED RED BLOOD CELLS 5 /100 WBC; PLATELET ESTIMATE SLIGHTLY DECREASED
[2018-09-09] MEDS ORDERED: IPRATROPIUM/ALBUTEROL 0.5-3(2.5)MG/3ML NEB HHN PRN (14:45)
[2018-09-09] MEDS: APIXABAN 2.5 MG TABLET GT SCH (15:24)
[2018-09-09] MEDS: AMLODIPINE 5MG TABLET GT SCH (18:29)
[2018-09-09] MEDS: CLONIDINE 0.1MG TABLET PO PRN (21:04)
[2018-09-10] VITALS (11 sets, daily range): BP systolic 96–152; BP diastolic 62–103
[2018-09-10] MEDS: METOCLOPRAMIDE HCL 10MG/2ML VIAL IV SCH ×5 (00:31→23:13)
[2018-09-10] MEDS: APIXABAN 2.5 MG TABLET GT SCH ×3 (00:31→20:46)
[2018-09-10] MEDS: BLOOD SUGAR DIAGNOSTIC STRIP TEST SCH ×4 (00:40→18:15)
[2018-09-10] MEDS: IPRATROPIUM/ALBUTEROL 0.5-3(2.5)MG/3ML NEB HHN SCH ×3 (01:27→20:47)
[2018-09-10] MEDS: PANTOPRAZOLE SODIUM 40 MG/VIAL IV SCH (08:55)
[2018-09-10] MEDS: AMLODIPINE 5MG TABLET GT SCH (08:55)
[2018-09-10] MEDS: DOCUSATE SODIUM SUGAR FREE 100MG/10ML UDC NG SCH (08:56)
[2018-09-10] MEDS: ZINC SULFATE 220 MG ( 50 ) CAPSULE PO SCH (08:56)
[2018-09-10] MEDS: LACTOBACILLUS GG CAPSULE PO SCH (08:56)
[2018-09-10] MEDS: ASCORBIC ACID 500 MG TABLET NG SCH (09:00)
[2018-09-10] MEDS: NYSTATIN POWDER 15GM TOP SCH ×3 (09:00→17:35)
[2018-09-10 10:02] LABS: MEAN CORPUSCULAR HEMOGLOBIN 29.1 pg (28.0-32.0); MEAN PLATELET VOLUME 9.1 fl (7.4-10.4); PLATELET 135 x1000/uL (130-400); RED BLOOD CELL COUNT 3.78 mill/uL (4.2-5.4); RED CELL DISTRIBUTION WIDTH 19.2 % (11.6-14.6)
[2018-09-10 10:25] LABS: PHOSPHORUS 3.7 mg/dL (2.5-4.9)
[2018-09-10 11:13] LABS: PLATELET ESTIMATE NORMAL
[2018-09-10 19:21] LABS: AMMONIA 45 uMol/L (<32)
[2018-09-10 19:32] LABS: T4 FREE 0.89 ng/dL (0.76-1.46)
[2018-09-10 19:52] LABS: FOLIC ACID (FOLATE) SERUM >20 ng/mL ng/mL (>5.38); VITAMIN B12 SERUM >2000 pg/mL pg/mL (211-911)
[2018-09-10] MEDS ORDERED: POTASSIUM CHLORIDE INJ 40 MEQ in DEXT 5% WATER 250 ML IV NR (23:30)
[2018-09-11] VITALS (11 sets, daily range): BP systolic 93–145; BP diastolic 40–82
[2018-09-11] MEDS: BLOOD SUGAR DIAGNOSTIC STRIP TEST SCH ×4 (00:10→17:35)
[2018-09-11] MEDS: IPRATROPIUM/ALBUTEROL 0.5-3(2.5)MG/3ML NEB HHN SCH ×4 (01:59→20:07)
[2018-09-11] MEDS: METOCLOPRAMIDE HCL 10MG/2ML VIAL IV SCH ×3 (05:41→17:56)
[2018-09-11 09:12] LABS: HEMATOCRIT. 30.1 % (36.0-48.0); HEMOGLOBIN. 9.8 g/dL (12.0-16.0); MEAN CORPUSCULAR HEMOGLOBIN 28.9 pg (28.0-32.0); MEAN CORPUSCULAR VOLUME 88.8 fL (81.0-99.0); MEAN PLATELET VOLUME 8.8 fl (7.4-10.4); PLATELET 143 x1000/uL (130-400); RED BLOOD CELL COUNT 3.39 mill/uL (4.2-5.4); RED CELL DISTRIBUTION WIDTH 19.1 % (11.6-14.6)
[2018-09-11] MEDS: AMLODIPINE 5MG TABLET GT SCH (09:40)
[2018-09-11] MEDS: DOCUSATE SODIUM SUGAR FREE 100MG/10ML UDC NG SCH (09:40)
[2018-09-11] MEDS: APIXABAN 2.5 MG TABLET GT SCH ×2 (09:40→22:51)
[2018-09-11] MEDS: LACTOBACILLUS GG CAPSULE PO SCH (09:40)
[2018-09-11] MEDS: ZINC SULFATE 220 MG ( 50 ) CAPSULE PO SCH (09:40)
[2018-09-11] MEDS: PANTOPRAZOLE SODIUM 40 MG/VIAL IV SCH (09:40)
[2018-09-11] MEDS: NYSTATIN POWDER 15GM TOP SCH ×3 (09:41→17:55)
[2018-09-11 09:42] LABS: PHOSPHORUS 4.1 mg/dL (2.5-4.9)
[2018-09-11 10:13] LABS: NUCLEATED RED BLOOD CELLS 2 /100 WBC
[2018-09-11 10:14] LABS: PLATELET ESTIMATE NORMAL
[2018-09-12] VITALS (12 sets, daily range): BP systolic 93–119; BP diastolic 34–77
[2018-09-12] MEDS: BLOOD SUGAR DIAGNOSTIC STRIP TEST SCH ×4 (00:25→17:48)
[2018-09-12] MEDS: METOCLOPRAMIDE HCL 10MG/2ML VIAL IV SCH ×4 (00:25→17:06)
[2018-09-12] MEDS: IPRATROPIUM/ALBUTEROL 0.5-3(2.5)MG/3ML NEB HHN SCH ×4 (01:43→19:53)
[2018-09-12] MEDS: PANTOPRAZOLE SODIUM 40 MG/VIAL IV SCH (08:58)
[2018-09-12] MEDS: DOCUSATE SODIUM SUGAR FREE 100MG/10ML UDC NG SCH (08:58)
[2018-09-12] MEDS: LACTOBACILLUS GG CAPSULE PO SCH (09:00)
[2018-09-12] MEDS: APIXABAN 2.5 MG TABLET GT SCH ×2 (09:00→21:30)
[2018-09-12] MEDS: ZINC SULFATE 220 MG ( 50 ) CAPSULE PO SCH (09:00)
[2018-09-12] MEDS: AMLODIPINE 5MG TABLET GT SCH (09:00)
[2018-09-12] MEDS: NYSTATIN POWDER 15GM TOP SCH ×3 (09:01→17:06)
[2018-09-12 11:21] LABS: HEMATOCRIT. 26.1 % (36.0-48.0); HEMOGLOBIN. 8.5 g/dL (12.0-16.0); MEAN CORPUSCULAR HEMOGLOBIN 28.8 pg (28.0-32.0); MEAN CORPUSCULAR VOLUME 88.3 fL (81.0-99.0); MEAN PLATELET VOLUME 8.7 fl (7.4-10.4); PLATELET 132 x1000/uL (130-400); RED BLOOD CELL COUNT 2.95 mill/uL (4.2-5.4); RED CELL DISTRIBUTION WIDTH 19.6 % (11.6-14.6)
[2018-09-12 11:36] LABS: AMMONIA 29 uMol/L (<32)
[2018-09-12] MEDS ORDERED: HEPARIN SODIUM 1,000 UNIT/1ML VIAL IV NR (12:15)
[2018-09-12 12:55] LABS: NUCLEATED RED BLOOD CELLS 3 /100 WBC
[2018-09-12 12:56] LABS: PLATELET ESTIMATE NORMAL
[2018-09-12 13:06] LABS: A/G RATIO 0.8 (0.7-1.7); ALBUMIN 2.2 g/dL (2.9-4.4); ALPHA-1-GLOBULIN 0.4 g/dL (0.0-0.4); ALPHA-2-GLOBULIN 0.9 g/dL (0.4-1.0); BETA GLOBULIN 0.8 g/dL (0.7-1.3); GAMMA GLOBULINS 0.6 g/dL (0.4-1.8); GLOBULIN TOTAL 2.6 g/dL (2.2-3.9); M-SPIKE Not Observed g/dL (Not Observed); TOTAL PROTEIN SERUM 4.8 g/dL (6.0-8.5)
[2018-09-12] MEDS ORDERED: VANCOMYCIN 1 G PREMIX 200 ML IV SCH (16:30)
[2018-09-12] MEDS ORDERED: ALBUMIN HUMAN 25GM/500ML (5%) IV NR (20:00)
[2018-09-13] VITALS (13 sets, daily range): BP systolic 97–125; BP diastolic 60–74
[2018-09-13] MEDS: IPRATROPIUM/ALBUTEROL 0.5-3(2.5)MG/3ML NEB HHN SCH ×4 (00:01→20:47)
[2018-09-13] MEDS: BLOOD SUGAR DIAGNOSTIC STRIP TEST SCH ×4 (01:24→16:55)
[2018-09-13] MEDS: METOCLOPRAMIDE HCL 10MG/2ML VIAL IV SCH ×5 (01:24→23:46)
[2018-09-13 07:15] LABS: HEMATOCRIT. 26.8 % (36.0-48.0); HEMOGLOBIN. 8.7 g/dL (12.0-16.0); MEAN CORPUSCULAR HEMOGLOBIN 28.9 pg (28.0-32.0); MEAN CORPUSCULAR VOLUME 89.1 fL (81.0-99.0); MEAN PLATELET VOLUME 8.9 fl (7.4-10.4); PLATELET 130 x1000/uL (130-400); RED BLOOD CELL COUNT 3.01 mill/uL (4.2-5.4); RED CELL DISTRIBUTION WIDTH 19.3 % (11.6-14.6)
[2018-09-13 08:22] LABS: PHOSPHORUS 5.1 mg/dL (2.5-4.9)
[2018-09-13 08:43] LABS: NUCLEATED RED BLOOD CELLS 3 /100 WBC; PLATELET ESTIMATE NORMAL
[2018-09-13] MEDS ORDERED: FUROSEMIDE 40MG/4ML VIAL IVP SCH (09:00)
[2018-09-13] MEDS: APIXABAN 2.5 MG TABLET GT SCH ×2 (09:00→21:00)
[2018-09-13] MEDS: PANTOPRAZOLE SODIUM 40 MG/VIAL IV SCH (10:44)
[2018-09-13] MEDS: DOCUSATE SODIUM SUGAR FREE 100MG/10ML UDC NG SCH (10:56)
[2018-09-13] MEDS: AMLODIPINE 5MG TABLET GT SCH (10:58)
[2018-09-13] MEDS: NYSTATIN POWDER 15GM TOP SCH ×3 (12:21→17:27)
[2018-09-13] MEDS: ACETAMINOPHEN 325MG TABLET PO PRN (12:30)
[2018-09-14] VITALS (20 sets, daily range): BP systolic 94–135; BP diastolic 52–83
[2018-09-14] MEDS: BLOOD SUGAR DIAGNOSTIC STRIP TEST SCH ×4 (00:30→18:46)
[2018-09-14] MEDS: IPRATROPIUM/ALBUTEROL 0.5-3(2.5)MG/3ML NEB HHN SCH ×4 (01:47→20:37)
[2018-09-14 06:15] LABS: HEMATOCRIT. 27.1 % (36.0-48.0); HEMOGLOBIN. 8.9 g/dL (12.0-16.0); MEAN CORPUSCULAR HEMOGLOBIN 29.8 pg (28.0-32.0); MEAN CORPUSCULAR VOLUME 90.6 fL (81.0-99.0); MEAN PLATELET VOLUME 8.8 fl (7.4-10.4); PLATELET 149 x1000/uL (130-400); RED BLOOD CELL COUNT 2.99 mill/uL (4.2-5.4); RED CELL DISTRIBUTION WIDTH 19.9 % (11.6-14.6)
[2018-09-14] MEDS: METOCLOPRAMIDE HCL 10MG/2ML VIAL IV SCH ×3 (06:40→18:46)
[2018-09-14 06:45] LABS: PHOSPHORUS 6.5 mg/dL (2.5-4.9)
[2018-09-14] MEDS: NYSTATIN POWDER 15GM TOP SCH ×3 (08:59→18:46)
[2018-09-14] MEDS: AMLODIPINE 5MG TABLET GT SCH (08:59)
[2018-09-14] MEDS: DOCUSATE SODIUM SUGAR FREE 100MG/10ML UDC NG SCH (08:59)
[2018-09-14] MEDS: APIXABAN 2.5 MG TABLET GT SCH ×2 (09:00→21:00)
[2018-09-14] MEDS ORDERED: PAMIDRONATE DISODIUM 60 MG in SODIUM CHLORIDE 0.9% 500 ML IV SCH (09:00)
[2018-09-14] MEDS: PANTOPRAZOLE SODIUM 40 MG/VIAL IV SCH (09:00)
[2018-09-14 09:15] LABS: NUCLEATED RED BLOOD CELLS 7 /100 WBC; PLATELET ESTIMATE NORMAL
[2018-09-14] MEDS ORDERED: HYDROCORTISONE SOD SUCCINATE 1MG/ML 1ML INJ SYR(NEO) IV SCH (09:45)
[2018-09-14] MEDS ORDERED: DEXT 5%/0.45% NACL 1000ML 1,000 ML IV SCH (10:30)
[2018-09-14] MEDS: HYDROCORTISONE SOD SUCCINATE 100 MG/2 ML VIAL IV SCH ×2 (10:36→18:46)
[2018-09-15] VITALS (12 sets, daily range): BP systolic 90–137; BP diastolic 36–80
[2018-09-15] MEDS: METOCLOPRAMIDE HCL 10MG/2ML VIAL IV SCH ×4 (00:14→17:39)
[2018-09-15] MEDS: BLOOD SUGAR DIAGNOSTIC STRIP TEST SCH ×4 (00:30→17:34)
[2018-09-15] MEDS: IPRATROPIUM/ALBUTEROL 0.5-3(2.5)MG/3ML NEB HHN SCH ×4 (01:06→21:00)
[2018-09-15] MEDS: HYDROCORTISONE SOD SUCCINATE 100 MG/2 ML VIAL IV SCH ×3 (02:36→17:39)
[2018-09-15 06:27] LABS: HEMATOCRIT. 26.4 % (36.0-48.0); HEMOGLOBIN. 8.5 g/dL (12.0-16.0); MEAN CORPUSCULAR HEMOGLOBIN 28.9 pg (28.0-32.0); MEAN CORPUSCULAR VOLUME 89.6 fL (81.0-99.0); MEAN PLATELET VOLUME 8.8 fl (7.4-10.4); PLATELET 130 x1000/uL (130-400); RED BLOOD CELL COUNT 2.95 mill/uL (4.2-5.4); RED CELL DISTRIBUTION WIDTH 20.2 % (11.6-14.6)
[2018-09-15] MEDS: APIXABAN 2.5 MG TABLET GT SCH ×2 (07:41→21:00)
[2018-09-15 08:11] LABS: PHOSPHORUS 6.1 mg/dL (2.5-4.9)
[2018-09-15] MEDS: AMLODIPINE 5MG TABLET GT SCH (09:20)
[2018-09-15] MEDS: PANTOPRAZOLE SODIUM 40 MG/VIAL IV SCH (09:20)
[2018-09-15] MEDS: DOCUSATE SODIUM SUGAR FREE 100MG/10ML UDC NG SCH (09:20)
[2018-09-15] MEDS: NYSTATIN POWDER 15GM TOP SCH ×3 (09:21→17:40)
[2018-09-15 11:23] LABS: NUCLEATED RED BLOOD CELLS 2 /100 WBC
[2018-09-15 11:24] LABS: PLATELET ESTIMATE NORMAL
[2018-09-16] VITALS (7 sets, daily range): BP systolic 107–123; BP diastolic 58–76
[2018-09-16] MEDS: BLOOD SUGAR DIAGNOSTIC STRIP TEST SCH ×4 (00:10→18:11)
[2018-09-16] MEDS: METOCLOPRAMIDE HCL 10MG/2ML VIAL IV SCH ×4 (00:10→18:10)
[2018-09-16] MEDS: HYDROCORTISONE SOD SUCCINATE 100 MG/2 ML VIAL IV SCH ×3 (02:37→18:09)
[2018-09-16] MEDS: IPRATROPIUM/ALBUTEROL 0.5-3(2.5)MG/3ML NEB HHN SCH ×4 (02:50→20:37)
[2018-09-16 06:54] LABS: HEMATOCRIT. 31.5 % (36.0-48.0); HEMOGLOBIN. 10.2 g/dL (12.0-16.0); MEAN CORPUSCULAR VOLUME 90.1 fL (81.0-99.0); MEAN PLATELET VOLUME 8.9 fl (7.4-10.4); PLATELET 160 x1000/uL (130-400); RED CELL DISTRIBUTION WIDTH 20.4 % (11.6-14.6)
[2018-09-16 08:02] LABS: PHOSPHORUS 6.6 mg/dL (2.5-4.9)
[2018-09-16] MEDS: APIXABAN 2.5 MG TABLET GT SCH ×2 (09:00→20:50)
[2018-09-16] MEDS: DOCUSATE SODIUM SUGAR FREE 100MG/10ML UDC NG SCH (09:00)
[2018-09-16] MEDS: AMLODIPINE 5MG TABLET GT SCH (09:00)
[2018-09-16] MEDS: PANTOPRAZOLE SODIUM 40 MG/VIAL IV SCH (09:00)
[2018-09-16] MEDS: NYSTATIN POWDER 15GM TOP SCH ×3 (12:59→18:11)
[2018-09-16] MEDS: MIDODRINE HCL 5MG TABLET GT SCH (16:10)
[2018-09-16] MEDS ORDERED: ALBUMIN HUMAN 12.5G/250ML (5%) IV NR (16:30)
[2018-09-16 17:55] LABS: NUCLEATED RED BLOOD CELLS 4 /100 WBC; PLATELET ESTIMATE NORMAL
[2018-09-17] VITALS (19 sets, daily range): BP systolic 96–130; BP diastolic 38–84
[2018-09-17] MEDS: BLOOD SUGAR DIAGNOSTIC STRIP TEST SCH ×5 (00:41→23:43)
[2018-09-17] MEDS: METOCLOPRAMIDE HCL 10MG/2ML VIAL IV SCH ×6 (00:42→23:42)
[2018-09-17] MEDS: IPRATROPIUM/ALBUTEROL 0.5-3(2.5)MG/3ML NEB HHN SCH ×4 (01:55→20:59)
[2018-09-17] MEDS: HYDROCORTISONE SOD SUCCINATE 100 MG/2 ML VIAL IV SCH ×3 (02:10→18:40)
[2018-09-17 06:43] LABS: HEMOGLOBIN. 9.6 g/dL (12.0-16.0); MEAN CORPUSCULAR VOLUME 90.9 fL (81.0-99.0); MEAN PLATELET VOLUME 8.2 fl (7.4-10.4); PLATELET 154 x1000/uL (130-400); RED CELL DISTRIBUTION WIDTH 20.2 % (11.6-14.6)
[2018-09-17 08:09] LABS: NUCLEATED RED BLOOD CELLS 4 /100 WBC
[2018-09-17 08:11] LABS: PLATELET ESTIMATE NORMAL
[2018-09-17] MEDS: APIXABAN 2.5 MG TABLET GT SCH ×2 (09:00→21:00)
[2018-09-17] MEDS: MIDODRINE HCL 5MG TABLET GT SCH ×4 (09:00→18:40)
[2018-09-17] MEDS: NYSTATIN POWDER 15GM TOP SCH ×3 (09:00→17:00)
[2018-09-17 09:48] LABS: PHOSPHORUS 6.9 mg/dL (2.5-4.9)
[2018-09-17] MEDS: DOCUSATE SODIUM SUGAR FREE 100MG/10ML UDC NG SCH (10:26)
[2018-09-17] MEDS: PANTOPRAZOLE SODIUM 40 MG/VIAL IV SCH (10:27)
[2018-09-17] MEDS: ACETAMINOPHEN 325MG TABLET PO PRN ×2 (14:49→18:39)
[2018-09-17] MEDS: LACTOBACILLUS GG CAPSULE PO SCH (16:04)
[2018-09-18] VITALS (17 sets, daily range): BP systolic 91–134; BP diastolic 57–83
[2018-09-18] MEDS: HYDROCORTISONE SOD SUCCINATE 100 MG/2 ML VIAL IV SCH ×4 (02:27→18:38)
[2018-09-18] MEDS: IPRATROPIUM/ALBUTEROL 0.5-3(2.5)MG/3ML NEB HHN SCH ×2 (02:47→21:20)
[2018-09-18] MEDS: METOCLOPRAMIDE HCL 10MG/2ML VIAL IV SCH ×4 (06:16→23:50)
[2018-09-18] MEDS: BLOOD SUGAR DIAGNOSTIC STRIP TEST SCH ×4 (06:16→23:58)
[2018-09-18 06:53] LABS: HEMATOCRIT. 28.6 % (36.0-48.0); HEMOGLOBIN. 9.4 g/dL (12.0-16.0); MEAN CORPUSCULAR HEMOGLOBIN 29.4 pg (28.0-32.0); MEAN CORPUSCULAR VOLUME 89.9 fL (81.0-99.0); MEAN PLATELET VOLUME 8.3 fl (7.4-10.4); PLATELET 126 x1000/uL (130-400); RED BLOOD CELL COUNT 3.18 mill/uL (4.2-5.4); RED CELL DISTRIBUTION WIDTH 20.1 % (11.6-14.6)
[2018-09-18 07:01] LABS: PHOSPHORUS 4.4 mg/dL (2.5-4.9)
[2018-09-18] MEDS: APIXABAN 2.5 MG TABLET GT SCH ×2 (08:48→21:00)
[2018-09-18] MEDS: DOCUSATE SODIUM SUGAR FREE 100MG/10ML UDC NG SCH (08:50)
[2018-09-18] MEDS: LACTOBACILLUS GG CAPSULE PO SCH (08:50)
[2018-09-18] MEDS: PANTOPRAZOLE SODIUM 40 MG/VIAL IV SCH (08:50)
[2018-09-18] MEDS: NYSTATIN POWDER 15GM TOP SCH ×3 (08:51→17:00)
[2018-09-18] MEDS: MIDODRINE HCL 5MG TABLET GT SCH (08:51)
[2018-09-18 11:54] LABS: ATYPICAL LYMPHOCYTES 1; NUCLEATED RED BLOOD CELLS 4 /100 WBC
[2018-09-18 11:55] LABS: PLATELET ESTIMATE SLIGHTLY DECREASED
[2018-09-18] MEDS: MIDODRINE HCL 2.5MG TABLET GT SCH ×2 (12:37→18:38)
[2018-09-18] MEDS: AMLODIPINE 2.5MG TABLET GT SCH (12:37)
[2018-09-19] VITALS (23 sets, daily range): BP systolic 99–174; BP diastolic 45–121
[2018-09-19] MEDS: HYDROCORTISONE SOD SUCCINATE 100 MG/2 ML VIAL IV SCH ×2 (01:56→21:26)
[2018-09-19] MEDS: IPRATROPIUM/ALBUTEROL 0.5-3(2.5)MG/3ML NEB HHN SCH ×2 (02:10→19:08)
[2018-09-19] MEDS: METOCLOPRAMIDE HCL 10MG/2ML VIAL IV SCH ×4 (05:35→23:45)
[2018-09-19] MEDS: BLOOD SUGAR DIAGNOSTIC STRIP TEST SCH ×4 (06:30→21:00)
[2018-09-19] MEDS: APIXABAN 2.5 MG TABLET GT SCH ×2 (07:50→21:26)
[2018-09-19] MEDS: DOCUSATE SODIUM SUGAR FREE 100MG/10ML UDC NG SCH (08:14)
[2018-09-19] MEDS: LACTOBACILLUS GG CAPSULE PO SCH (08:14)
[2018-09-19] MEDS: MIDODRINE HCL 2.5MG TABLET GT SCH ×2 (08:15→13:00)
[2018-09-19] MEDS: AMLODIPINE 2.5MG TABLET GT SCH (08:15)
[2018-09-19] MEDS: PANTOPRAZOLE SODIUM 40 MG/VIAL IV SCH (08:15)
[2018-09-19 09:05] LABS: HEMATOCRIT. 31.3 % (36.0-48.0); HEMOGLOBIN. 9.9 g/dL (12.0-16.0); MEAN CORPUSCULAR HEMOGLOBIN 28.8 pg (28.0-32.0); MEAN CORPUSCULAR VOLUME 91.3 fL (81.0-99.0); MEAN PLATELET VOLUME 8.4 fl (7.4-10.4); PLATELET 128 x1000/uL (130-400); RED BLOOD CELL COUNT 3.43 mill/uL (4.2-5.4); RED CELL DISTRIBUTION WIDTH 21.2 % (11.6-14.6)
[2018-09-19 09:30] LABS: PHOSPHORUS 4.6 mg/dL (2.5-4.9)
[2018-09-19] MEDS ORDERED: CEFAZOLIN 1000MG PREMIX 50 ML IV ONE ×2 (10:00→10:05)
[2018-09-19] MEDS ORDERED: LIDOCAINE HCL 1% 20ML VIAL (Pyxis) INJ ONE (10:02)
[2018-09-19] MEDS ORDERED: SODIUM BICARBONATE 4% (2.4MEQ) 5ML VIAL IV ONE (10:02)
[2018-09-19] MEDS ORDERED: LIDOCAINE HCL/EPINEPHRINE 1%-EPI 1:100,000 20 ML VIAL ONE (10:02)
[2018-09-19] MEDS ORDERED: FENTANYL CITRATE/PF 50MCG/ML 2ML VIAL ONE (10:05)
[2018-09-19] MEDS: NYSTATIN POWDER 15GM TOP SCH ×3 (10:05→17:56)
[2018-09-19 14:13] LABS: NUCLEATED RED BLOOD CELLS 4 /100 WBC; PLATELET ESTIMATE SLIGHTLY DECREASED
[2018-09-19] MEDS ORDERED: DEXTROSE 50% WATER 50ML SYRINGE IV PRN (16:00)
[2018-09-19] MEDS: INSULIN LISPRO 100 UNITS/ML SUBCUT SCH ×2 (18:11→21:00)
[2018-09-20] VITALS (13 sets, daily range): BP systolic 111–133; BP diastolic 63–88
[2018-09-20] MEDS: IPRATROPIUM/ALBUTEROL 0.5-3(2.5)MG/3ML NEB HHN SCH ×3 (02:28→21:06)
[2018-09-20] MEDS: METOCLOPRAMIDE HCL 10MG/2ML VIAL IV SCH ×3 (05:52→17:52)
[2018-09-20 06:18] LABS: BASOPHILS % 0.1 % (0.0-2.0); HEMATOCRIT. 28.8 % (36.0-48.0); HEMOGLOBIN. 9.4 g/dL (12.0-16.0); LYMPHOCYTES % 8.3 % (20.0-50.0); MEAN CORPUSCULAR HEMOGLOBIN 29.7 pg (28.0-32.0); MEAN CORPUSCULAR VOLUME 90.9 fL (81.0-99.0); MEAN PLATELET VOLUME 8.5 fl (7.4-10.4); MONOCYTES % 10.3 % (2.0-8.0); NEUTROPHILS % 81.3 % (40.0-76.0); PLATELET 101 x1000/uL (130-400); RED BLOOD CELL COUNT 3.17 mill/uL (4.2-5.4); RED CELL DISTRIBUTION WIDTH 20.7 % (11.6-14.6)
[2018-09-20 07:09] LABS: PHOSPHORUS 3.9 mg/dL (2.5-4.9)
[2018-09-20] MEDS: BLOOD SUGAR DIAGNOSTIC STRIP TEST SCH ×4 (07:25→21:09)
[2018-09-20] MEDS: AMLODIPINE 2.5MG TABLET GT SCH (09:00)
[2018-09-20] MEDS: PANTOPRAZOLE SODIUM 40 MG/VIAL IV SCH (09:32)
[2018-09-20] MEDS: HYDROCORTISONE SOD SUCCINATE 100 MG/2 ML VIAL IV SCH ×2 (09:33→21:04)
[2018-09-20] MEDS: DOCUSATE SODIUM SUGAR FREE 100MG/10ML UDC NG SCH (09:33)
[2018-09-20] MEDS: NYSTATIN POWDER 15GM TOP SCH ×3 (09:33→17:52)
[2018-09-20] MEDS: APIXABAN 2.5 MG TABLET GT SCH ×2 (09:33→21:04)
[2018-09-20] MEDS: LACTOBACILLUS GG CAPSULE PO SCH (09:33)
[2018-09-20] MEDS: INSULIN LISPRO 100 UNITS/ML SUBCUT SCH ×4 (09:34→21:14)
== END 2018-09-20 22:41 | DRG 720 ==
LOC: ER 13:05 → CVICU 13:08 → EDBEDREQ 13:11 → EDBEDREQSVC 13:11 → EDBEDREQTM 13:11 → ENRESERV 13:22 → 5EST 09-05 14:10
PROVIDERS: ADMIT Internal Medicine; ATTEND Internal Medicine
PROC: 05HN33Z Insertion of Infusion Device into Left Internal Jugular Vein, Percutaneous Approach (ICD-10-PCS; 2018-08-29)
PROC: B544ZZA Ultrasonography of Left Jugular Veins, Guidance (ICD-10-PCS; 2018-08-29)
PROC: 02HV33Z Insertion of Infusion Device into Superior Vena Cava, Percutaneous Approach (ICD-10-PCS; principal; 2018-09-04)
PROC: 05PY33Z Removal of Infusion Device from Upper Vein, Percutaneous Approach (ICD-10-PCS; 2018-09-04)
PROC: 0DH68UZ Insertion of Feeding Device into Stomach, Via Natural or Artificial Opening Endoscopic (ICD-10-PCS; 2018-09-08)
PROC: 0JH63XZ Insertion of Tunneled Vascular Access Device into Chest Subcutaneous Tissue and Fascia, Percutaneous Approach (ICD-10-PCS; 2018-09-19)
PROC: 02HV33Z Insertion of Infusion Device into Superior Vena Cava, Percutaneous Approach (ICD-10-PCS; 2018-09-19)
PROC: B5181ZA Fluoroscopy of Superior Vena Cava using Low Osmolar Contrast, Guidance (ICD-10-PCS; 2018-09-19)
PROC: B548ZZA Ultrasonography of Superior Vena Cava, Guidance (ICD-10-PCS; 2018-09-19)
DX: A41.9 Sepsis, unspecified organism (principal); J96.00 Acute respiratory failure, unspecified whether with hypoxia or hypercapnia; N17.0 Acute kidney failure with tubular necrosis; E43 Unspecified severe protein-calorie malnutrition; R65.21 Severe sepsis with septic shock; D69.6 Thrombocytopenia, unspecified; I50.23 Acute on chronic systolic (congestive) heart failure; G92 Toxic encephalopathy; J18.9 Pneumonia, unspecified organism; B49 Unspecified mycosis; I13.0 Hypertensive heart and chronic kidney disease with heart failure and stage 1 through stage 4 chronic kidney disease, or unspecified chronic kidney disease; N18.3 Chronic kidney disease, stage 3 (moderate); I27.81 Cor pulmonale (chronic); I27.21 Secondary pulmonary arterial hypertension; I42.9 Cardiomyopathy, unspecified; E78.00 Pure hypercholesterolemia, unspecified; E78.5 Hyperlipidemia, unspecified; E83.52 Hypercalcemia; E87.6 Hypokalemia; F03.90 Unspecified dementia, unspecified severity, without behavioral disturbance, psychotic disturbance, mood disturbance, and anxiety; I07.1 Rheumatic tricuspid insufficiency; I34.0 Nonrheumatic mitral (valve) insufficiency; I48.1 Persistent atrial fibrillation; I48.2 Chronic atrial fibrillation; I48.92 Unspecified atrial flutter; I49.3 Ventricular premature depolarization; D63.8 Anemia in other chronic diseases classified elsewhere; K43.9 Ventral hernia without obstruction or gangrene; K29.70 Gastritis, unspecified, without bleeding; K56.7 Ileus, unspecified; L03.115 Cellulitis of right lower limb; M41.9 Scoliosis, unspecified; N28.1 Cyst of kidney, acquired; N39.0 Urinary tract infection, site not specified; I67.82 Cerebral ischemia; R13.12 Dysphagia, oropharyngeal phase; T68.XXXA Hypothermia, initial encounter; S31.010A Laceration without foreign body of lower back and pelvis without penetration into retroperitoneum, initial encounter; X58.XXXA Exposure to other specified factors, initial encounter; Z78.1 Physical restraint status; Z79.01 Long term (current) use of anticoagulants; Z82.49 Family history of ischemic heart disease and other diseases of the circulatory system; Z85.3 Personal history of malignant neoplasm of breast; Z90.12 Acquired absence of left breast and nipple; R62.7 Adult failure to thrive; Z74.01 Bed confinement status; Z91.81 History of falling; Z93.1 Gastrostomy status; Z95.0 Presence of cardiac pacemaker; Z68.29 Body mass index [BMI] 29.0-29.9, adult; Z79.899 Other long term (current) drug therapy; Y93.89 Activity, other specified; Y92.89 Other specified places as the place of occurrence of the external cause; Y99.8 Other external cause status; E11.65 Type 2 diabetes mellitus with hyperglycemia; E11.22 Type 2 diabetes mellitus with diabetic chronic kidney disease
CPT/HCPCS: 36415; 36556; 36558; 36600; 51702; 71045; 74018; 76770; 76937; 77001; 80048; 80061; 80202; 82140; 82330; 82375; 82550; 82553; 82607; 82746; 82805; 82962; 83036; 83605; 83735; 83970; 84100; 84134; 84155; 84165; 84439; 84443; 84481; 84484; 86705; 86706; 86709; 86803; 87106; 87340; 92610; 93005; 93306; 93970; 94640; 96361; 96365; 96367; 96375; 97110; 97162; 97530; 99291; A6261; C1750; C1752; C1769; C9113; J0690; J1450; J1642; J1644; J1650; J1720; J1815; J1940; J2060; J2250; J2270; J2370; J2430; J2543; J2765; J3010; J3370; J3475; J3480; J3490; J7030; J7040; J7042; J7050; J7060; J7620; P9041; P9047; A4315